=== PATIENT | male | born 1965 | race Hispanic/Latino ===

== ENCOUNTER 2018-07-22 03:31 | Inpatient (IN) | payer OTHER ==
[~2018-07-22] VITALS: Ht 165.1 cm; Wt 107.0 kg
[2018-07-22 04:09] LABS: BASOPHILS % (AUTO) 0.5 % (0.0-5.0); EOSINOPHILS % (AUTO) 1.1 % (0.0-8.0); HEMATOCRIT 41.9 % (42-54); LYMPHOCYTES % (AUTO) 21.2 % (21.0-51.0); MEAN CORPUSCULAR HEMOGLOBIN 30.2 pg (27.0-33.0); MEAN CORPUSCULAR HGB CONC 33.7 g/dL (32.0-36.0); MEAN CORPUSCULAR VOLUME 89.5 fL (79-99); MONOCYTES % (AUTO) 5.7 % (3.0-13.0); NEUTROPHILS % (AUTO) 71.5 % (40.0-77.0); PLATELET COUNT (AUTO) 220 K/uL (130-400); RED BLOOD CELL COUNT(AUTO) 4.68 MIL/uL (4.50-6.20); RED CELL DISTRIBUTION WIDTH 12.6 % (11.0-15.5); WHITE BLOOD COUNT (AUTO) 8.9 K/uL (4.8-10.8)
[2018-07-22 04:18] LABS: CREATININE 0.9 mg/dL (0.5-1.5); POTASSIUM 3.7 mmol/L (3.5-5.1)
[2018-07-22] MEDS ORDERED: NITROGLYCERIN 0.4 MG SL TAB SL ONE (04:21)
[2018-07-22 04:22] LABS: INR 1.04 (0.85-1.15); PARTIAL THROMBOPLASTIN TIME 30.4 SEC (26.3-35.5); PROTHROMBIN TIME 10.9 SEC (9.6-11.6)
[2018-07-22 04:29] LABS: ALBUMIN 3.6 g/dL (3.5-5.0); BILIRUBIN,TOTAL 0.6 mg/dL (0.2-1.0); TOTAL PROTEIN, SERUM 7.1 g/dL (6.0-8.3)
[2018-07-22] MEDS ORDERED: NITROGLYCERIN 1GM/1 INCH PACKET TD ONE (05:27)
[2018-07-22 07:40] VITALS: BP 142/88
[2018-07-22] MEDS ORDERED: ACETAMINOPHEN 325 MG TAB PO PRN (08:45)
[2018-07-22] MEDS ORDERED: ONDANSETRON HCL 4 MG/2 ML VIAL IVP PRN (08:45)
[2018-07-22] MEDS ORDERED: MORPHINE SULFATE 2 MG/ML 1ML SYG IVP PRN ×2 (08:45)
[2018-07-22] MEDS: PANTOPRAZOLE 40 MG/VIAL IVP SCH (09:00)
[2018-07-22] MEDS: ASPIRIN 325MG EC TAB 325 MG TABLET.DR PO SCH (09:38)
[2018-07-22] MEDS ORDERED: CARV6.25 PO (09:47)
[2018-07-22 11:00] VITALS: BP 120/66
[2018-07-22 12:15] LABS: CREATINE KINASE, TOTAL 88 U/L (21-232); MYOGLOBIN 45 ng/mL (10-92); TROPONIN I < 0.04 ng/mL (0.00-0.06)
[2018-07-22 16:00] VITALS: BP 128/69
[2018-07-22 19:49] VITALS: BP 144/81
[2018-07-22 20:55] LABS: CREATINE KINASE, TOTAL 75 U/L (21-232); MYOGLOBIN 38 ng/mL (10-92); TROPONIN I < 0.04 ng/mL (0.00-0.06)
[2018-07-22 23:56] VITALS: BP 137/80
[2018-07-23 04:00] VITALS: BP 131/82
[2018-07-23 04:14] LABS: HEMATOCRIT 41.1 % (42-54); MEAN CORPUSCULAR HEMOGLOBIN 30.1 pg (27.0-33.0); MEAN CORPUSCULAR HGB CONC 33.6 g/dL (32.0-36.0); MEAN CORPUSCULAR VOLUME 89.7 fL (79-99); PLATELET COUNT (AUTO) 206 K/uL (130-400); RED BLOOD CELL COUNT(AUTO) 4.58 MIL/uL (4.50-6.20); RED CELL DISTRIBUTION WIDTH 12.8 % (11.0-15.5); WHITE BLOOD COUNT (AUTO) 12.4 K/uL (4.8-10.8)
[2018-07-23 07:00] VITALS: BP 135/80
[2018-07-23] MEDS ORDERED: REGADENOSON 0.4 MG/5 ML PF SYG IVP SCH (08:15)
[2018-07-23 11:00] VITALS: BP 148/86
[2018-07-23] MEDS: ASPIRIN 325MG EC TAB 325 MG TABLET.DR PO SCH (11:46)
[2018-07-23] MEDS: PANTOPRAZOLE 40 MG/VIAL IVP SCH (11:46)
[2018-07-23 16:00] VITALS: BP 136/78
[2018-07-23 19:06] VITALS: BP 133/86
[2018-07-23] MEDS: CARVEDILOL 6.25 MG TABLET PO SCH (21:08)
[2018-07-23 23:03] VITALS: BP 123/70
[2018-07-24 03:23] VITALS: BP 118/72
[2018-07-24 07:00] VITALS: BP 131/86
[2018-07-24] MEDS ORDERED: PANTOPRAZOLE SODIUM 40 MG TABLET.DR PO SCH (09:07)
[2018-07-24] MEDS: CARVEDILOL 6.25 MG TABLET PO SCH (10:12)
[2018-07-24] MEDS: ASPIRIN 325MG EC TAB 325 MG TABLET.DR PO SCH (10:12)
[2018-07-24 11:00] VITALS: BP 139/76
== END 2018-07-24 15:30 | disposition home or self-care (01) | DRG 313 ==
LOC: EDH 03:31 → EDHIP 03:32 → 2AH 07:43
PROVIDERS: ADMIT Internal Medicine Nephrology; ATTEND Internal Medicine Nephrology
DX: R07.9 Chest pain, unspecified (principal); R94.31 Abnormal electrocardiogram [ECG] [EKG]; I10 Essential (primary) hypertension; E66.9 Obesity, unspecified; F32.9 Major depressive disorder, single episode, unspecified; F41.9 Anxiety disorder, unspecified; Z68.39 Body mass index [BMI] 39.0-39.9, adult
CPT/HCPCS: 36415; 71045; 78452; 80048; 80053; 80061; 82550; 83874; 84484; 85025; 85027; 85610; 85730; 93005; 93017; 93306; 96374; 99291; A9500; C9113; J2405; J2785

== ENCOUNTER 2019-06-11 08:19 | Emergency (ER) | payer OTHER ==
[~2019-06-11 08:19] MED LIST: CARV6.25 PO
[2019-06-11] MEDS ORDERED: KETOROLAC TROMETHAMINE 60 MG/2 ML VIAL ONE (08:56)
== END 2019-06-11 09:50 | disposition home or self-care (01) ==
LOC: EDH 08:19
DX: S33.5XXA Sprain of ligaments of lumbar spine, initial encounter (principal); F41.9 Anxiety disorder, unspecified; F32.9 Major depressive disorder, single episode, unspecified; I10 Essential (primary) hypertension; Z87.891 Personal history of nicotine dependence; X58.XXXA Exposure to other specified factors, initial encounter; Y93.89 Activity, other specified; Y92.89 Other specified places as the place of occurrence of the external cause; Y99.8 Other external cause status
CPT/HCPCS: 96372; 99283; J1885